=== PATIENT | male | born 1955 | race Caucasian/White ===

== ENCOUNTER → 2017-08-24 | Outpatient (CLI) | payer MEDICARE ==
--- NOTE | 2017-08-24 18:48 | RAD ---
Clinical Indication: Trauma 3 weeks ago, right leg bruising and swelling. Technique: Study is dated August 24, 2017. Grayscale, color flow and spectral waveform analysis was performed of the right lower extremity with and without compression. Findings: There is normal compressibility of all visualized vein segments. No evidence of DVT is present on grayscale or color images. There is normal phasicity of waveform. There is normal augmentation. There is a complex fluid collection noted posterior to the right knee, 15 x 11 x 2 cm, could represent hematoma or ruptured popliteal cyst. There is subcutaneous edema. Impression: 1. No evidence of deep vein thrombosis. 2. Complex fluid collection posterior to the right knee, could represent ruptured popliteal cyst or hematoma. Electronically signed by: Carlos Weeks MD (08/24/2017 6:44 PM) [facility]
== END | disposition home or self-care (01) ==
LOC: US 16:49
PROVIDERS: ATTEND Family Medicine
DX: M79.661 Pain in right lower leg (principal); R22.41 Localized swelling, mass and lump, right lower limb; S80.11XD Contusion of right lower leg, subsequent encounter; X58.XXXD Exposure to other specified factors, subsequent encounter
CPT/HCPCS: 93971

== ENCOUNTER → 2017-09-27 | Outpatient (CLI) | payer MEDICARE ==
--- NOTE | 2017-09-27 16:27 | RAD ---
Right leg venous Doppler study: Clinical indications: Right leg swelling and pain. Findings: Duplex sonography (including rodriguez scale evaluation and color flow and waveform spectral analysis) of the proximal aspect of the greater saphenous vein and proximal aspect of the profunda femoral vein and the entire length of the common femoral and superficial femoral and popliteal veins and the tibioperoneal trunk and the proximal aspect of the posterior tibial veins of the right leg was performed. Normal compressibility, augmentation of color Doppler flow after calf compression, and respiratory variation of Doppler flow is seen. Thus, there are no sonographic findings of deep venous thrombosis within these veins. Impression: There are no sonographic findings of deep venous thrombosis within the veins discussed above of the right lower extremity. There is a Zeng's cyst of the popliteal fossa which measures 4.2 cm in size. There is another cystic collection seen within the posterior calf. This may be represent further extension of the Zeng's cyst or rupture of the Zeng's cyst with fluid accumulation. This area measures 11.3 cm in vertical dimension.
== END | disposition home or self-care (01) ==
LOC: US 13:05
PROVIDERS: ATTEND Family Medicine
DX: M71.21 Synovial cyst of popliteal space [Baker], right knee (principal); M79.89 Other specified soft tissue disorders; R22.41 Localized swelling, mass and lump, right lower limb
CPT/HCPCS: 93971

== ENCOUNTER → 2018-01-10 | Outpatient (CLI) | payer MEDICARE ==
--- NOTE | 2018-01-10 11:54 | RAD ---
EXAM: Chest CT without intravenous contrast. HISTORY: Pulmonary nodule. TECHNIQUE: Computed tomographic images of the chest were obtained without contrast. Multiplanar reformatting was performed. *One or more of the following individualized dose reduction techniques were utilized for this examination: 1. Automated exposure control. 2. Adjustment of the mA and/or kV according to patient size. 3. Use of iterative reconstruction technique. COMPARISON: 01/07/2017. FINDINGS: There is an 11 mm peripheral nodule containing a calcification within the lateral left upper lobe, similar compared to the prior study. There is adjacent linear and groundglass opacity likely due to atelectasis or scarring. There are adjacent 3 mm and 2 mm nodules which are likely more conspicuous compared to the prior study due to differences in technique. There is a stable benign 1 mm nodule within the right upper lobe. There is no pleural effusion or pneumothorax. There is no infiltrate. The aorta is normal in caliber. The heart is normal in size. There is coronary artery atherosclerosis. There is gynecomastia. No pathologically enlarged lymph node is seen. There is a tiny right posterior tracheal diverticulum. There is cholelithiasis. There is degenerative change in spine. No suspicious osseous lesion is seen. There are few incidental osseous hemangiomas. IMPRESSION: 1. 11 mm nodule containing faint calcification within the lateral left upper lobe. This is not significantly changed compared to the prior study. The year of stability and presence of calcification favors benignity. Continued follow-up can be performed to confirm a two-year course of stability. There are adjacent tiny nodules measuring 3 mm and 2 mm which are slightly more conspicuous compared to the prior study, likely due to differences in technique. 2. No acute thoracic finding. Electronically signed by: Sepideh Mercado MD (01/10/2018 11:50 AM) [place] [id number]
== END | disposition home or self-care (01) ==
LOC: CT 10:28
PROVIDERS: ATTEND Family Medicine
DX: I25.10 Atherosclerotic heart disease of native coronary artery without angina pectoris (principal); D18.09 Hemangioma of other sites; K80.80 Other cholelithiasis without obstruction; R91.8 Other nonspecific abnormal finding of lung field
CPT/HCPCS: 71250

== ENCOUNTER 2018-11-26 11:51 | Emergency (ER) | payer MEDICARE ==
[~2018-11-26] VITALS: Ht 170.2 cm; Wt 105.2 kg
--- NOTE | 2018-11-26 12:02 | PHYS DOC ---
Adult General Chief Complaint Chief Complaint: LACERATION/AVULSION HPI HPI 63-year-old male presents with left hand laceration. The patient was unwilling a new cortical of Soniya wire and as soon as he cut it the tension came off and it flipped around his left hand. He knows he has 1 good laceration and "a couple of other pokes". He comes in because he was unable to get the bleeding to stop. The patient did try to put some quick clot on the wounds. He had stopped temporarily but when he was putting a dressing on it started bleeding again. The patient is on Xarelto. He denies any other injuries. His tetanus is not up-to-date. Review of Systems Review of Systems Constitutional: Denies fever or chills [] Eyes: Denies change in visual acuity, redness, or eye pain [] HENT: Denies nasal congestion or sore throat [] Respiratory: Denies cough or shortness of breath [] Cardiovascular: No additional information not addressed in HPI [] GI: Denies abdominal pain, nausea, vomiting, bloody stools or diarrhea [] : Denies dysuria or hematuria [] Musculoskeletal: Denies back pain or joint pain [] Integument: Denies rash or skin lesions [] Neurologic: Denies headache, focal weakness or sensory changes [] Endocrine: Denies polyuria or polydipsia [] All other systems were reviewed and found to be within normal limits, except as documented in this note. Physical Exam Physical Exam Constitutional: Well developed, well nourished, no acute distress, non-toxic appearance. [] HENT: Normocephalic, atraumatic, bilateral external ears normal, oropharynx moist, no oral exudates, nose normal. [] Eyes: PERRLA, EOMI, conjunctiva normal, no discharge. [] Neck: Normal range of motion, no tenderness, supple, no stridor. [] Cardiovascular:Heart rate regular rhythm, no murmur [] Lungs & Thorax: Bilateral breath sounds clear to auscultation [] Abdomen: Bowel sounds normal, soft, no tenderness, no masses, no pulsatile masses. [] Skin: 2 cm laceration dorsal left hand at the 2nd MCP[] Back: No tenderness, no CVA tenderness. [] Extremities: No tenderness, no cyanosis, no clubbing, ROM intact, no edema. [] Neurologic: Alert and oriented X 3, normal motor function, normal sensory function, no focal deficits noted. [] Psychologic: Affect normal, judgement normal, mood normal. [] EKG EKG [] Radiology/Procedures Radiology/Procedures [] Course & Med Decision Making Course & Med Decision Making Pertinent Labs and Imaging studies reviewed. (See chart for details) We were able to control the patient's bleeding prior to repairing the wound. I was able to repair the room with sutures. See note below for more details. The patient was given Tdap in the ED. No further complications. The patient is stable for discharge at this time. [] Dragon Disclaimer Dragon Disclaimer This electronic medical record was generated, in whole or in part, using a voice recognition dictation system. Laceration Repair Lac Repair Indication: 2cm linear laceration of the dorsal left hand Procedure: Verbal consent was obtained from the patient for suture repair of his left hand laceration. The wound was thoroughly irrigated with a saline Hibiclens bath. A guo majority of the quick clot material was removed. There was a small amount retained the margins of the wound. The wound was anesthetized with 2% lidocaine with epinephrine. A total of 1.5 mL was used. After good anesthesia was achieved, I was able to manually extract the quick clot from the wound margins with tweezers. I then repaired the laceration with 3 4-0 Ethilon sutures in interrupted fashion. There was good skin approximation. Bleeding was controlled. Wound was covered with a nonadherent pad and compression bandage. Total repaired wound length: [2 cm Other Items: None The patient tolerated the procedure well Complications: Minor removal of quick clot material required before suturing. Departure Departure: Impression: Primary Impression: Laceration of left hand with foreign body Disposition: HOME, SELF-CARE Condition: IMPROVED Referrals: JUMANA MOLINA MD (PCP) Patient Instructions: Laceration Care, Adult, [id number], Sutured Wound Care, Fond-jo-Bphs Problem Qualifiers Primary Impression: Laceration of left hand with foreign body Encounter type: initial encounter Qualified Codes: S61.422A - Laceration with foreign body of left hand, initial encounter CANDY BENITO DO November 26, 2018 12:02
[2018-11-26] MEDS: DIPHTH,PERTUSS(ACELL),TET TOX 0.5 ML DISP.SYRIN. VAX IM ONE (12:49)
[2018-11-26 12:54] VITALS: BP 159/96
== END 2018-11-26 13:03 | disposition home or self-care (01) ==
LOC: ER 11:51
DX: S61.422A Laceration with foreign body of left hand, initial encounter (principal); W26.8XXA Contact with other sharp object(s), not elsewhere classified, initial encounter; Y93.89 Activity, other specified; Y92.89 Other specified places as the place of occurrence of the external cause; Y99.8 Other external cause status
CPT/HCPCS: 12041; 90471; 90715; 99284-25

== ENCOUNTER → 2021-05-13 | Outpatient (CLI) | payer MEDICARE ==
[2021-05-13 11:45] LABS: CALCIUM 8.8 mg/dL (8.5-10.1); CREATININE 1.3 mg/dL (0.7-1.3); GFR 55.6; POTASSIUM 3.8 mmol/L (3.5-5.1)
--- NOTE | 2021-05-13 11:46 | RAD ---
AP and Lateral Views of the Chest 05/13/2021 10:23 AM Indication: Reason: CHEST PAIN / Spl. Instructions: / History: Comparison: CT chest January 10, 2018 Findings: There is no focal consolidation or infiltrate identified. The cardiomediastinal silhouette is within normal limits. Extensive right coronary stent noted. There is no evidence of pneumothorax o r pleural effusion. No acute osseous abnormalities are identified. Impression: No evidence of acute cardiopulmonary process. Electronically signed by: Ham Yoo MD (05/13/2021 11:44 AM) [id number]
== END ==
LOC: RAD 10:18
PROVIDERS: ATTEND Internal Medicine Interventional Cardiology
DX: I10 Essential (primary) hypertension (principal); R06.02 Shortness of breath; I25.119 Atherosclerotic heart disease of native coronary artery with unspecified angina pectoris
CPT/HCPCS: 36415; 71046; 80048

== ENCOUNTER → 2021-11-11 | Outpatient (CLI) | payer MEDICARE ==
[2021-11-11 10:37] LABS: ALBUMIN 3.5 g/dL (3.4-5.0); ALBUMIN/GLOBULIN RATIO 1.1 (1.0-1.7); CALCIUM 8.2 mg/dL (8.5-10.1); CREATININE 1.4 mg/dL (0.7-1.3); GFR 50.9; TOTAL BILIRUBIN 0.8 mg/dL (0.2-1.0); TOTAL PROTEIN 6.6 g/dL (6.4-8.2)
[2021-11-11 15:40] LABS: CHOLESTEROL/HDL RATIO 2.7; FREE T4 1.09 ng/dL (0.76-1.46); THYROID STIM HORMONE (TSH) 2.543 uIU/mL (0.358-3.740)
== END ==
LOC: LAB 09:37
PROVIDERS: ATTEND Internal Medicine Interventional Cardiology
DX: I11.0 Hypertensive heart disease with heart failure (principal); I50.30 Unspecified diastolic (congestive) heart failure; I25.10 Atherosclerotic heart disease of native coronary artery without angina pectoris; I48.0 Paroxysmal atrial fibrillation; Z51.81 Encounter for therapeutic drug level monitoring; E78.5 Hyperlipidemia, unspecified; Z79.899 Other long term (current) drug therapy
CPT/HCPCS: 36415; 80053; 80061; 84439; 84443